=== PATIENT | male | born 1995 | race African-American/Black ===

== ENCOUNTER 2016-12-12 09:34 | Emergency (ER) | payer MEDICAID, OTHER ==
[2016-12-12 10:47] VITALS: BP 138/96
--- NOTE | 2016-12-12 11:14 | UC ---
Complaint Male HPI - HPI Summary HPI Summary: 21 year old patient noticed redness around his urethra opening yesterday. Reports new sexual partner a day and a half ago without condom use. Denies swelling or tenderness in the groin, discharge from the penis, or lesions. - History of Current Complaint Chief Complaint: UCSTDScreening Stated Complaint: STD TESTING Time Seen by Provider: 12/12/16 10:58 Hx Obtained From: Patient Severity Initially: Mild Severity Currently: Mild Location: Penis - Erythema Associated Signs And Symptoms: Negative: Fever, Hematuria, Dysuria, Nausea, Penile Swelling - Denies testicular swelling, Penile Discharge - Risk Factors Testicular Torsion: Negative - Allergies/Home Medications Allergies/Adverse Reactions: Allergies Allergy/AdvReac Type Severity Reaction Status Date / Time No Known Allergies Allergy Verified 02/04/16 15:44 PMH/Surg Hx/FS Hx/Imm Hx Previously Healthy: Yes Endocrine History Of: Denies: Diabetes, Thyroid Disease Cardiovascular History Of: Denies: Cardiac Disorders, Hypertension Respiratory History Of: Denies: COPD, Asthma GI/ History Of: Denies: Ulcer Neurological History Of: Denies: TIA, CVA, Dementia, Seizures, Migraine Psychological History Of: Denies: Anxiety, Depression, Bipolar Disorder, Schizophrenia, Post Traumatic Stress Disorder - Surgical History Surgical History: Yes Surgery Procedure, Year, and Place: TONSILLECTOMY - Family History Known Family History: Positive: None - Social History Lives: With Family Alcohol Use: Weekly Substance Use Type: None Substance Use Comment - Amount & Last Used: cocaine found in pocket by police Smoking Status (MU): Light Every Day Tobacco Smoker Amount Used/How Often: LESS THAN 1/2 PPD Have You Smoked in the Last Year: No - Immunization History Vaccination Up to Date: Yes Review of Systems Constitutional: Negative Skin: Other - Irritation around the urethra Eyes: Negative ENT: Negative Respiratory: Negative Cardiovascular: Negative Gastrointestinal: Negative Genitourinary: Negative Motor: Negative Neurovascular: Negative Musculoskeletal: Negative Neurological: Negative Psychological: Negative All Other Systems Reviewed And Are Negative: Yes Physical Exam Triage Information Reviewed: Yes Appearance: Well-Appearing Vital Signs: Initial Vital Signs Temp 97.3 F 12/12/16 10:43 Pulse 66 12/12/16 10:43 Resp 18 12/12/16 10:43 BP 138/96 12/12/16 10:43 Pulse Ox 100 12/12/16 10:43 Vital Signs Reviewed: Yes Eye Exam: Normal Eyes: Positive: Conjunctiva Clear ENT: Positive: Hearing grossly normal, Pharynx normal, TMs normal Dental Exam: Normal Neck: Positive: Supple, Nontender, No Lymphadenopathy Respiratory: Positive: Chest non-tender, Lungs clear, Normal breath sounds Cardiovascular: Positive: RRR, No Murmur, Pulses Normal Abdomen Description: Positive: Nontender, No Organomegaly, Soft Bowel Sounds: Positive: Present Musculoskeletal Exam: Normal Musculoskeletal: Positive: Strength Intact, ROM Intact Neurological Exam: Normal Neurological: Positive: Alert Psychological Exam: Normal Complaint Male Course/Dx - Differential Dx/Diagnosis Provider Diagnoses: Skin irritation at urethral meatus. STI screenings Discharge - Discharge Plan Condition: Stable Disposition: HOME Patient Education Materials: Safe Sex (ED), Nonspecific Urethritis in Men (ED) Referrals: [facility] [Outside] - If Needed Additional Instructions: Follow up to have repeat GC chlamydia in 14-21 days, today's lab were taken as a baseline. Repeat HIV screening in 3-6months
== END 2016-12-12 11:37 | disposition home or self-care (01) ==
LOC: UCEAST 09:34
DX: N48.89 Other specified disorders of penis (principal); Z11.3 Encounter for screening for infections with a predominantly sexual mode of transmission; F17.210 Nicotine dependence, cigarettes, uncomplicated
CPT/HCPCS: 87491; 87529; 87591; 99201; G0463

== ENCOUNTER 2017-02-08 23:06 | Emergency (ER) | payer MEDICAID ==
[2017-02-08 23:14] VITALS: BP 183/97
--- NOTE | 2017-02-09 00:58 | ED ---
Laceration/Wound HPI - HPI Summary HPI Summary: 21M presents with laceration to left index finger. He cut it on a knife. His last tetanus was 3 years ago. He has full ROM of his fingers. He is right handed. Bleeding is controlled at this time. - History of Current Complaint Stated Complaint: LEFT POINTER LAC Time Seen by Provider: 02/08/17 23:49 Pain Intensity: 2 - Allergy/Home Medications Allergies/Adverse Reactions: Allergies Allergy/AdvReac Type Severity Reaction Status Date / Time No Known Allergies Allergy Verified 02/08/17 23:14 PMH/Surg Hx/FS Hx/Imm Hx Endocrine/Hematology History: Denies: Hx Diabetes, Hx Thyroid Disease Cardiovascular History: Denies: Hx Hypertension Respiratory History: Denies: Hx Asthma, Hx Chronic Obstructive Pulmonary Disease (COPD) GI History: Denies: Hx Ulcer Sensory History: Denies: Hx Contacts or Glasses Opthamlomology History: Denies: Hx Contacts or Glasses Neurological History: Denies: Hx Dementia, Hx Migraine, Hx Seizures, Hx Transient Ischemic Attacks (TIA) Psychiatric History: Denies: Hx Anxiety, Hx Eating Disorder, Hx Depression, Hx Schizophrenia, Hx Bipolar Disorder, Hx of Violent Episodes Against Others - Surgical History Surgery Procedure, Year, and Place: TONSILLECTOMY Infectious Disease History: No Infectious Disease History: Denies: Hx Hepatitis, Hx Human Immunodeficiency Virus (HIV), Traveled Outside the [place] in Last 30 Days - Family History Known Family History: Positive: None Negative: Cardiac Disease - Social History Alcohol Use: Occasionally Substance Use Type: Reports: None Substance Use Comment - Amount & Last Used: cocaine found in pocket by police Smoking Status (MU): Light Every Day Tobacco Smoker Amount Used/How Often: LESS THAN 1/2 PPD Have You Smoked in the Last Year: No Review of Systems Negative: Fever Negative: Chest Pain Negative: Shortness Of Breath Positive: Other - left index finger laceration All Other Systems Reviewed And Are Negative: Yes Physical Exam Triage Information Reviewed: Yes Vital Signs On Initial Exam: Initial Vitals Temp Pulse Resp BP Pulse Ox 98.2 F 87 18 183/97 100 02/08/17 23:10 02/08/17 23:10 02/08/17 23:10 02/08/17 23:10 02/08/17 23:10 Vital Signs Reviewed: Yes Appearance: Positive: Well-Appearing Skin: Positive: Warm, Dry, Other - 4 cm by 1/2 cm laceration near MCP of left index finger Head/Face: Positive: Normal Head/Face Inspection Eyes: Positive: Normal, Conjunctiva Clear Respiratory/Lung Sounds: Positive: Clear to Auscultation, Breath Sounds Present Cardiovascular: Positive: Normal, RRR Procedures - Laceration/Wound Repair 1 Location: Other - left index finger Description: Linear Anesthesia: Digital, 1.0% Length, Depth and Shape: 4 cm by 1/2 cm width Irrigated w/ Saline (ccs): 100 Closure: Single Layer Suture Type: Prolene - 4-0 Number of Sutures: 6 Diagnostics - Vital Signs Vital Signs Temp Pulse Resp BP Pulse Ox 02/08/17 23:10 98.2 F 87 18 183/97 100 - Laboratory Lab Statement: Any lab studies that have been ordered have been reviewed, and results considered in the medical decision making process. Laceration Repair Course/Dx - Course Course Of Treatment: 21M presents with laceration to left index finger. cut it on knife. full ROM of left index finger. placed 6 sutures and kimmie taped. patient understands and agrees with plan - Differential Dx Differental Diagnoses: Abrasion, Avulsion, Laceration - Clinical Impression Provider Diagnoses: Laceration of left index finger Discharge - Discharge Plan Condition: Good Disposition: HOME Patient Education Materials: Care For Your Stitches (ED) Referrals: No Primary Care Phys,NOPCP [Primary Care Provider] - Additional Instructions: Keep area kimmie taped, change dressing once a day Keep area clean and dry for 48 hours Take Tylenol or ibuprofen for pain every 6 hours Return to ED or primary for suture removal in 10-14 days Return to ED if develop signs of infection such as fever, spreading redness, or pus formation Images - Images Hands: 1 - 4cm by 1/2 cm laceration
== END 2017-02-09 01:09 | disposition home or self-care (01) ==
LOC: ED 23:06
DX: S61.211A Laceration without foreign body of left index finger without damage to nail, initial encounter (principal); W26.0XXA Contact with knife, initial encounter; Y93.9 Activity, unspecified; Y92.9 Unspecified place or not applicable; F17.210 Nicotine dependence, cigarettes, uncomplicated
CPT/HCPCS: 12002; 99281

== ENCOUNTER 2017-02-20 11:23 | Emergency (ER) | payer MEDICAID ==
--- NOTE | 2017-02-20 12:34 | UC ---
HPI Wound/Suture Re-check - HPI Summary HPI Summary: Seen in ED 02/08/17 for cut at base of L 2nd finger. Had 6 sutures placed, here for removal. Finger still swollen, no redness or pain. Has numbness on the dorsal aspect of finger distal to wound. - History Of Current Complaint Chief Complaint: UCWounds Stated Complaint: WOUND RECHECK Time Seen by Provider: 02/20/17 12:19 Hx Obtained From: Patient Onset/Duration: Sudden Onset Severity: Mild - Allergies/Home Medications Allergies/Adverse Reactions: Allergies Allergy/AdvReac Type Severity Reaction Status Date / Time No Known Allergies Allergy Verified 02/08/17 23:14 PMH/Surg Hx/FS Hx/Imm Hx Endocrine History Of: Denies: Diabetes, Thyroid Disease Cardiovascular History Of: Denies: Cardiac Disorders, Hypertension Respiratory History Of: Denies: COPD, Asthma GI/ History Of: Denies: Ulcer Neurological History Of: Denies: TIA, CVA, Dementia, Seizures, Migraine Psychological History Of: Denies: Anxiety, Depression, Bipolar Disorder, Schizophrenia, Post Traumatic Stress Disorder - Surgical History Surgical History: Yes Surgery Procedure, Year, and Place: TONSILLECTOMY - Family History Known Family History: Positive: None Negative: Cardiac Disease - Social History Occupation: Employed Full-time - in kitchen Alcohol Use: Occasionally Alcohol Amount: states no Substance Use Type: None Substance Use Comment - Amount & Last Used: cocaine found in pocket by police Smoking Status (MU): Former Smoker Amount Used/How Often: LESS THAN 1/2 PPD Have You Smoked in the Last Year: No - Immunization History Vaccination Up to Date: Yes Review of Systems Constitutional: Negative Skin: Other - sutures L 2nd finger Eyes: Negative ENT: Negative Respiratory: Negative Cardiovascular: Negative Gastrointestinal: Negative Genitourinary: Negative Motor: Negative Neurovascular: Negative Musculoskeletal: Negative Neurological: Negative Psychological: Negative All Other Systems Reviewed And Are Negative: Yes Physical Exam Triage Information Reviewed: Yes Appearance: Well-Appearing, No Pain Distress, Well-Nourished Vital Signs: Initial Vital Signs Temp 98.3 F 02/20/17 12:13 Pulse 70 02/20/17 12:13 Resp 18 02/20/17 12:13 Pulse Ox 99 02/20/17 12:13 Vital Signs Reviewed: Yes Eye Exam: Normal Eyes: Positive: Conjunctiva Clear ENT Exam: Normal ENT: Positive: Normal ENT inspection, Hearing grossly normal, Pharynx normal, TMs normal Dental Exam: Normal Neck exam: Normal Neck: Positive: Supple, Nontender, No Lymphadenopathy Respiratory Exam: Normal Respiratory: Positive: Chest non-tender, Lungs clear, Normal breath sounds, No respiratory distress, No accessory muscle use Cardiovascular Exam: Normal Cardiovascular: Positive: RRR, No Murmur Musculoskeletal Exam: Normal Neurological Exam: Other - L 2nd finger numbness Neurological: Positive: Alert Psychological Exam: Normal Skin Exam: Other - 6 sutures removed from laceration L 2nd finger. Surface of wound slightly dehisced, but deeper healing is apparent. No erythema or streaking. Course/Dx - Differential Dx - Laceration/Wound Provider Diagnoses: Suture removal L index finger. healing wound Discharge - Discharge Plan Condition: Stable Disposition: HOME Patient Education Materials: Stitches Removal (ED) Referrals: No Primary Care Phys,NOPCP [Primary Care Provider] - Additional Instructions: Call or return if you develop redness, streaking, or significant pain in your finger.
== END 2017-02-20 12:35 | disposition home or self-care (01) ==
LOC: UCEAST 11:23
DX: Z48.02 Encounter for removal of sutures (principal)

== ENCOUNTER 2017-07-16 15:26 | Emergency (ER) | payer MEDICAID ==
[2017-07-16 15:35] VITALS: BP 149/85
--- NOTE | 2017-07-16 16:12 | UC ---
Delores Ruiz Thomas, scribed for Bethanie Mendoza MD on 07/16/17 at 1606 . Throat Pain/Nasal Diogo HPI - HPI Summary HPI Summary: The pt is a 21 y/o M presenting to [facility] c/o sore throat, a cough, and nasal congestion that began three days ago. He notes that he has had a bad mold problem in his home for the last 6 months. The patient has treated the pain with DayQuil and NyQuil [employer]OR OF [employer]. He did not take DayQuil today. Pt additionally c/o postnasal drip and insomnia secondary to the pain. Pt denies sinus congestion and ear pain. He is not on daily medication. PMHx: previously healthy. PSHx: tonsillectomy. SHx: smoking, occasional alcohol use, no illicit drug use. He works in a kitchen at the [employer]. He denies recent sick contacts. Patient s medication reviewed this visit. - History of Current Complaint Chief Complaint: UCRespiratory Stated Complaint: URI Time Seen by Provider: 07/16/17 15:58 Hx Obtained From: Patient Onset/Duration: Lasting Days - 3, Still Present Cough: Nonproductive Associated Signs & Symptoms: Positive: Nasal Discharge, Other - POS: sore throat , nasal congestion, postnasal drip, insomnia secondary to the pain. Negative: Sinus Discomfort, Fever Related History: Smoking, Other (Noted In Comments) - He reports a mold problem in his house. - Allergies/Home Medications Allergies/Adverse Reactions: Allergies Allergy/AdvReac Type Severity Reaction Status Date / Time No Known Allergies Allergy Verified 07/16/17 15:34 PMH/Surg Hx/FS Hx/Imm Hx Previously Healthy: Yes Cardiovascular History: Other Other Cardiovascular History: NEG: CHF Respiratory History: Other Other Respiratory History: NEG: asthma - Surgical History Surgical History: Yes Surgery Procedure, Year, and Place: TONSILLECTOMY - Family History Known Family History: Negative: Cardiac Disease, Diabetes - Social History Occupation: Employed Full-time Lives: Alone Alcohol Use: Occasionally Alcohol Amount: states no Substance Use Type: None Smoking Status (MU): Current Every Day Smoker Amount Used/How Often: LESS THAN 1/2 PPD Have You Smoked in the Last Year: No - Immunization History Vaccination Up to Date: Yes Review of Systems Constitutional: Negative Skin: Negative Eyes: Negative ENT: Sore Throat, Nasal Discharge, Sinus Congestion, Sinus Pain/Tenderness, Other - POS: nasal congestion, postnasal drip; Respiratory: Cough Cardiovascular: Negative Gastrointestinal: Negative Genitourinary: Negative Motor: Negative Neurovascular: Negative Musculoskeletal: Negative Neurological: Other - POS: insomnia secondary to the pain Psychological: Negative All Other Systems Reviewed And Are Negative: Yes Physical Exam Triage Information Reviewed: Yes Appearance: Well-Appearing, No Pain Distress, Well-Nourished Vital Signs: Initial Vital Signs Temp 98.1 F 07/16/17 15:30 Pulse 68 07/16/17 15:30 Resp 12 07/16/17 15:30 BP 149/85 07/16/17 15:30 Pulse Ox 99 07/16/17 15:30 Eye Exam: Normal Eyes: Positive: Conjunctiva Clear ENT Exam: Normal ENT: Positive: Hearing grossly normal, TM dull - left TM with fluid no erythema turbinates inflammed, boggy + max sinus pain + PND mmoist no exudate, no erythema uvula midline Dental Exam: Normal Neck exam: Normal Neck: Positive: 1 Respiratory Exam: Normal Cardiovascular Exam: Normal Abdominal Exam: Normal Musculoskeletal Exam: Normal Neurological Exam: Normal Psychological Exam: Normal Skin Exam: Normal Throat Pain/Nasal Course/Dx - Course Assessment/Plan: The patient is a 21 y/o M who presents with a sore throat, cough, nasal congestion, and postnasal drip. Pt with fluid at TM and congestion. Tovar tart abx. flonase. secretion hygeine. pt in agreement with plan. Blood pressure noted and patient informed of follow up with PCP. - Differential Dx/Diagnosis Provider Diagnoses: sinusitis Discharge - Discharge Plan Condition: Stable Disposition: HOME Prescriptions: Azithromyxin JB (NF) [Z-Jb (Zithromax) 250 mg tabs #6] 2 tab PO .TODAY, THEN 1 DAILY #6 tab Fluticasone NASAL SPRAY 50MCG* [Flonase NASAL SPRAY 50MCG*] 1 spray BOTH NARES DAILY #1 btl Patient Education Materials: Rhinosinusitis (ED) Referrals: No Primary Care Phys,NOPCP [Primary Care Provider] - Additional Instructions: - Take anitbiotics as prescribed until gone - use nasal sprays as prescribed - okay to take dayquil and nyquil for your symptoms - These infections are spread by oral secretions - do not share eating or drinking utensils until you symptoms are resolved. Clean items that may get your secretions such as cell phones, ipads, computer mouse, television remote. Once you have been on antbiotics for 2 days, change your pillowcase and your toothbrush - Contact your doctor or return with questions or concerns The documentation as recorded by the Delores guerra Thomas accurately reflects the service I personally performed and the decisions made by me, Bethanie Mendoza MD.
== END 2017-07-16 16:15 | disposition home or self-care (01) ==
LOC: UCEAST 15:26
DX: J32.9 Chronic sinusitis, unspecified (principal); F17.210 Nicotine dependence, cigarettes, uncomplicated
CPT/HCPCS: 99212; G0463

== ENCOUNTER 2019-08-30 20:34 | Emergency (ER) | payer OTHER ==
--- NOTE | 2019-08-30 20:37 | UC ---
Back Pain HPI - HPI Summary HPI Summary: 23 yo male presents with low back pain. He tells me that around 1600 this evening he was lifting a heavy box at work and felt a pop in his lower back. Lower back has been stiff since that time. He has not taken anything OTC for his discomfort. He denies hx of back pain. Denies radiation of pain, numbness, tingling. No saddle anesthesia or loss of bowel/bladder control. - History of Current Complaint Stated Complaint: BACK PAIN Time Seen by Provider: 08/30/19 20:36 Hx Obtained From: Patient Onset/Duration: Sudden Onset Severity Initially: Moderate Severity Currently: Moderate Pain Intensity: 5 Pain Scale Used: 0-10 Numeric - Allergies/Home Medications Allergies/Adverse Reactions: Allergies Allergy/AdvReac Type Severity Reaction Status Date / Time No Known Allergies Allergy Verified 08/30/19 20:49 Home Medications: Home Medications NK [No Home Medications Reported] 08/30/19 [History Confirmed 08/30/19] PMH/Surg Hx/FS Hx/Imm Hx - Additional Past Medical History Additional PMH: None - Surgical History Surgical History: Yes Surgery Procedure, Year, and Place: TONSILLECTOMY - Family History Known Family History: Positive: None Negative: Cardiac Disease, Diabetes - Social History Occupation: Student Alcohol Use: Occasionally Alcohol Amount: states no Substance Use Type: None Smoking Status (MU): Current Every Day Smoker Amount Used/How Often: LESS THAN 1/2 PPD Have You Smoked in the Last Year: No - Immunization History Vaccination Up to Date: Yes Review of Systems All Other Systems Reviewed And Are Negative: No Constitutional: Positive: Negative Skin: Positive: Negative Respiratory: Positive: Negative Cardiovascular: Positive: Negative Neurovascular: Positive: Negative Musculoskeletal: Positive: Other: - Back pain Neurological: Positive: Negative Psychological: Positive: Negative Physical Exam - Summary Physical Exam Summary: GENERAL: NAD. WDWN. No pain distress. SKIN: No rashes, sores, lesions, or open wounds. NECK: Supple. FROM. Nontender. No lymphadenopathy. CHEST: CTAB. No r/r/w. No accessory muscle use. Breathing comfortably and in no distress. CV: RRR. Pulses intact. Cap refill <2seconds MSK: TTP over lumbar paraspinal muscles. Pain with flexion and extension of spine. Positive SLR b/l for low back pain without radiation. Strength 5/5 B/L LEs including dorsiflexion and plantar flexion. FROM B/L LEs. No edema. NEURO: Alert. Sensations intact B/L LEs L3-S1. Reflexes intact PSYCH: Age appropriate behavior. Triage Information Reviewed: Yes Vital Signs: Vital Signs: Temp Pulse Resp BP Pulse Ox 99 F 73 18 145/85 96 08/30/19 20:45 08/30/19 20:45 08/30/19 20:45 08/30/19 20:45 08/30/19 20:45 Vital Signs Reviewed: Yes Diagnostics - Radiology Lumbar XR Radiology Interpretation Completed By: ED Physician Summary of Radiographic Findings: No acute process Back Pain Course/Dx - Course Course Of Treatment: XR wet read negative for acute process. Suspect strain of lower back. In the clinic he was given toradol IM for his discomfort. Advised to rest and apply ice/heat to the area to decrease discomfort. Advised to take tylenol/ibuprofen as directed for discomfort. If pain does not improve within 5-7 days, to call [facility] (Dr. Covington) at number below to schedule a recheck - Differential Dx/Diagnosis Provider Diagnosis: Low back pain Discharge ED - Sign-Out/Discharge Documenting (check all that apply): Patient Departure All imaging exams completed and their final reports reviewed: No - Discharge Plan Condition: Stable Disposition: HOME Patient Education Materials: Low Back Strain (ED), Lower Back Exercises (ED) Forms: *Work Release Referrals: No Primary Care Phys,NOPCP [Primary Care Provider] - Mgadaleno Covington MD [Medical Doctor] - If Needed Additional Instructions: If you develop a fever, shortness of breath, chest pain, new or worsening symptoms - please call your PCP or go to the ED immediately. Your blood pressure was high at todays visit. Please see your primary provider within 4 weeks for recheck and re-evaluation. 1) Rest and apply ice/heat to your back to decrease discomfort 2) May take tylenol/ibuprofen as directed for discomfort 3) If your symptoms do not improve within 5-7 days, please call Dr. Covington at the number below to schedule an appointment for a recheck of your work related injury - Billing Disposition and Condition Condition: STABLE Disposition: Home - Attestation Statements Provider Attestation: Per institutional requirements, I have reviewed the chart, however, I was not consulted specifically or made aware of this patient by the midlevel provider. I did not personally evaluate, interact with , or disposition this patient.
[2019-08-30 20:51] VITALS: BP 145/85
[2019-08-30] MEDS ORDERED: Ketorolac *IM* INJ* 60 MG/2 ML VIAL IM ONE (20:53)
--- NOTE | 2019-08-31 10:43 | UC ---
- Progress Note Progress Note: Reviewed xray report from 08/30/19. Reviewed UC notes. No change in management based on xray report. Course/Dx - Diagnoses Provider Diagnoses: Low back pain Discharge ED - Sign-Out/Discharge Documenting (check all that apply): Post-Discharge Follow Up All imaging exams completed and their final reports reviewed: Yes - Discharge Plan Condition: Stable Disposition: HOME Patient Education Materials: Low Back Strain (ED), Lower Back Exercises (ED) Forms: *Work Release Referrals: Magdaleno Covington MD [Medical Doctor] - If Needed No Primary Care Phys,NOPCP [Primary Care Provider] - Additional Instructions: If you develop a fever, shortness of breath, chest pain, new or worsening symptoms - please call your PCP or go to the ED immediately. Your blood pressure was high at todays visit. Please see your primary provider within 4 weeks for recheck and re-evaluation. 1) Rest and apply ice/heat to your back to decrease discomfort 2) May take tylenol/ibuprofen as directed for discomfort 3) If your symptoms do not improve within 5-7 days, please call Dr. Covington at the number below to schedule an appointment for a recheck of your work related injury - Billing Disposition and Condition Condition: STABLE Disposition: Home
== END 2019-08-30 21:40 | disposition home or self-care (01) ==
LOC: UCEAST 20:34
DX: M54.5 Low back pain (principal); F17.210 Nicotine dependence, cigarettes, uncomplicated
CPT/HCPCS: 72110; 99211; G0463; J1885

== ENCOUNTER 2020-05-16 02:48 | Inpatient (IN) ==
[2020-05-16 03:39] LABS: Urine Appearance Clear; Urine Bilirubin Negative (Negative); Urine Blood 1+ (Negative); Urine Color Straw; Urine Glucose Negative (Negative); Urine Ketones Negative (Negative); Urine Nitrite Negative (Negative); Urine Protein Negative (Negative); Urine Specific Gravity 1.003 (1.010-1.030); Urine Urobilinogen Negative (Negative)
[2020-05-16 03:58] LABS: Urine Benzodiazepine Screen None Detected (None Detect); Urine Opiates Screen None Detected (None Detect)
[2020-05-16] MEDS ORDERED: Nicotine PATCH 14 MG/24 HR PATCH TRANSDERM ONE (04:09)
[2020-05-16 04:18] LABS: ALT 56 U/L (7-52); AST 38 U/L (13-39); Albumin 4.7 g/dL (3.2-5.2); Albumin/Globulin Ratio 1.7 (1-3); Alkaline Phosphatase 97 U/L (34-104); Anion Gap 8 mmol/L (2-11); BUN/Creatinine Ratio 9.5 (8-20); Blood Urea Nitrogen 7 mg/dL (6-24); CO2 Carbon Dioxide 25 mmol/L (22-32); Calcium 8.8 mg/dL (8.6-10.3); Chloride 110 mmol/L (101-111); EGFR African American 157.2 (>60); EGFR Non-African American 129.9 (>60); Globulin 2.7 g/dL (2-4); Glucose 102 mg/dL (70-100); Potassium 3.6 mmol/L (3.5-5.0); Sodium 143 mmol/L (135-145); Total Protein 7.4 g/dL (6.4-8.9)
[2020-05-16 04:32] LABS: Urine Bacteria Absent (Absent); Urine Red Blood Cell Trace(0-2/hpf) (Absent); Urine White Blood Cell Trace(0-5/hpf) (Absent)
[2020-05-16 04:33] LABS: ABS Basophils 0.1 10^3/ul (0-0.2); ABS Eosinophils 0.1 10^3/ul (0-0.6); ABS Lymphocytes 2.7 10^3/ul (1.0-4.8); ABS Monocytes 0.4 10^3/ul (0-0.8); Hematocrit 42 % (42-52); Lymphocyte % 39.9 %; Mean Corpuscular HGB Conc 36 g/dL (31-36); Mean Corpuscular Hemoglobin 30 pg (27-31); Mean Corpuscular Volume 84 fL (80-94); Mean Platelet Volume 7.1 fL (7.4-10.4); Nucleated Red Blood Cells % 0.1; Platelet Count 304 10^3/uL (150-450); Red Cell Distribution Width 14 % (10-15); White Blood Count 6.8 10^3/uL (3.5-10.8)
[2020-05-16 04:39] LABS: Acetaminophen < 15 mcg/mL; Alcohol, S 263 mg/dL (<10); Salicylate < 2.50 mg/dL (<30)
[2020-05-16 04:52] LABS: TSH (Thyroid Stimulating Horm) 1.21 mcIU/mL (0.34-5.60)
[2020-05-16] MEDS ORDERED: diPHENhydraMINE IV 50 MG/ML 1 ml VIAL (BENADRYL) IM ONE (04:52)
[2020-05-16] MEDS ORDERED: Haloperidol 5 mg/ml SDV IV/IM 5 MG/ML AMP IM ONE (04:52)
[2020-05-16] MEDS ORDERED: LORazepam 2 mg VIAL 1 ml IM ONE (04:52)
[2020-05-16] MEDS ORDERED: Lorazepam PYXIS KEY ONE (04:58)
[2020-05-16] MEDS ORDERED: Al Hydrox/Mg Hydrox/Simet LIQ 30 ML UDC PO PRN (14:02)
[2020-05-16] MEDS ORDERED: LORazepam 1 mg TAB (*) PO ONE (14:06)
[2020-05-17] MEDS: Vitamin THERAPEUTIC TAB PO SCH (08:36)
[2020-05-17] MEDS ORDERED: Nicotine GUM 4MG FRUIT FLAVOR PO PRN (10:29)
[2020-05-17] MEDS: Nicotine PATCH 21 MG/24 HR PATCH TRANSDERM SCH (10:58)
[2020-05-17] MEDS ORDERED: diPHENhydraMINE IV 50 MG/ML 1 ml VIAL (BENADRYL) IM ONE (11:20)
[2020-05-17] MEDS ORDERED: LORazepam 2 mg VIAL 1 ml IM ONE (11:20)
[2020-05-17] MEDS: LORazepam 1 mg TAB (*) PO SCH ×3 (15:46→19:50)
[2020-05-18] MEDS: LORazepam 1 mg TAB (*) PO SCH ×6 (00:22→23:31)
[2020-05-18] MEDS: Vitamin THERAPEUTIC TAB PO SCH (08:24)
[2020-05-18] MEDS: Nicotine PATCH 21 MG/24 HR PATCH TRANSDERM SCH (08:24)
[2020-05-18 18:33] LABS: Variant Hemoglobin 39.6 = Hb S %
[2020-05-19] MEDS: Nicotine PATCH 21 MG/24 HR PATCH TRANSDERM SCH (08:19)
[2020-05-19] MEDS: Vitamin THERAPEUTIC TAB PO SCH (08:19)
[2020-05-19 11:02] VITALS: BP 161/95
== END 2020-05-19 11:45 | disposition home or self-care (01) | DRG 756 ==
LOC: ED 02:48 → BSU 16:32
PROVIDERS: ADMIT Psychiatry & Neurology Psychiatry; ATTEND Psychiatry & Neurology Psychiatry

== ENCOUNTER 2021-04-06 21:27 | Observation (INO) ==
[2021-04-06 23:23] LABS: Urine Benzodiazepine Screen None Detected (None Detect); Urine Cannabinoids Screen Presumptive Positive (None Detect); Urine Opiates Screen None Detected (None Detect)
[2021-04-06] MEDS ORDERED: NS 0.9% 1000 ml BAG 1,000 ML IV ONE (23:36)
[2021-04-07] MEDS ORDERED: levETIRAcetam 1000MG IVPREMIX 1,000 MG/100 ML BAG IVPB ONE (00:38)
[2021-04-07] MEDS ORDERED: levETIRAcetam 500 MG IVPREMIX 500 MG/100 ML BAG IV SCH (01:00)
[2021-04-07] MEDS ORDERED: cloNIDine 0.1 MG PATCH 0.1 MG/24 HR 7 DAY PATCH TRANSDERM SCH (09:00)
[2021-04-07] MEDS ORDERED: Lorazepam PYXIS KEY PRN (14:38)
[2021-04-07] MEDS ORDERED: LORazepam 2 mg VIAL 1 ml IV PUSH ONE (14:38)
[2021-04-07] MEDS ORDERED: LORazepam 2 mg VIAL 1 ml IM ONE (14:40)
[2021-04-07] MEDS ORDERED: LORazepam 2 mg VIAL 1 ml ONE (14:40)
[2021-04-07] MEDS ORDERED: levETIRAcetam IV 750 MG in NS 0.9% 100 ml BAG 100 ML IVPB SCH (18:00)
[2021-04-07] MEDS: levETIRAcetam IV 750 MG in NS 0.9% 100 ml BAG 100 ML IVPB SCH (20:04)
[2021-04-08 04:56] LABS: ABS Basophils 0.1 10^3/ul (0-0.2); ABS Eosinophils 0.1 10^3/ul (0-0.6); ABS Lymphocytes 3.2 10^3/ul (1.0-4.8); ABS Monocytes 0.8 10^3/ul (0-0.8); ABS Neutrophils 4.3 10^3/ul (1.5-7.7); Eosinophil % 1.3 %; Hematocrit 42 % (42-52); Hemoglobin 14.3 g/dL (14.0-18.0); Lymphocyte % 38.2 %; Mean Corpuscular HGB Conc 35 g/dL (31-36); Mean Corpuscular Hemoglobin 28 pg (27-31); Mean Corpuscular Volume 80 fL (80-94); Mean Platelet Volume 7.9 fL (7.4-10.4); Nucleated Red Blood Cells % 0.1; Platelet Count 298 10^3/uL (150-450); Red Blood Count 5.17 10^6 /uL (4.18-5.48); Red Cell Distribution Width 16 % (10-15); White Blood Count 8.5 10^3/uL (3.5-10.8)
[2021-04-08 05:18] LABS: Calcium 9.1 mg/dL (8.6-10.3); EGFR African American 158.4 (>60); EGFR Non-African American 130.9 (>60); Potassium 3.5 mmol/L (3.5-5.0)
[2021-04-08] MEDS: levETIRAcetam IV 750 MG in NS 0.9% 100 ml BAG 100 ML IVPB SCH (07:34)
[2021-04-08] MEDS ORDERED: levETIRAcetam 500 MG IVPREMIX 500 MG/100 ML BAG IV SCH (10:00)
[2021-04-08] MEDS ORDERED: Enoxaparin 40 MG/0.4 ML SYR SUBCUT SCH (10:00)
[2021-04-08 15:34] VITALS: BP 159/96
== END 2021-04-08 18:46 | disposition home or self-care (01) ==
LOC: ED 21:27 → EDHOLD 21:27 → SSU 04-07 03:26
PROVIDERS: ADMIT Student in an Organized Health Care Education/Training Program; ATTEND Hospitalist

== ENCOUNTER 2024-10-13 20:18 | Observation (INO) ==
[2024-10-13 21:31] LABS: ABS Basophils 0.1 10^3/uL (0.0-0.1); ABS Eosinophils 0.2 10^3/uL (0.0-0.5); ABS Lymphocytes 1.9 10^3/uL (1.0-4.8); ABS Monocytes 0.7 10^3/uL (0.0-1.1); ABS Neutrophils 5.3 10^3/uL (1.5-7.6); ABS Nucleated RBC 0.01 10^3/ul; Eosinophil % 2.9 %; Hematocrit 46.2 % (38-53); Lymphocyte % 23.2 %; Mean Corpuscular Hemoglobin 29.9 pg (27-33); Mean Corpuscular Hgb Conc 34.7 g/dL (31-36); Mean Corpuscular Volume 86.2 fL (80-97); Nucleated Red Blood Cells % 0.1 %/100WBC (0.0-0.8); Platelet Count 378 10^3/uL (150-450); Red Blood Count 5.35 10^6/uL (4.06-5.63); Red Cell Distribution Width 13.2 % (12-17); White Blood Count 8.3 10^3/uL (3.6-10.2)
[2024-10-13 22:16] LABS: Albumin 5.1 g/dL (3.2-5.2); Albumin/Globulin Ratio 2.1 (1-3); C Reactive Protein 1.36 mg/L (<8.01); Calcium 10.3 mg/dL (8.6-10.3); Creatinine, Serum 0.78 mg/dL (0.67-1.17); Globulin 2.4 g/dL (2-4); Potassium 4.4 mmol/L (3.5-5.0); Total Bilirubin 1.2 mg/dL (0.2-1.0); Total Protein 7.5 g/dL (6.4-8.9); eGFR CKD-EPI 124.6 (>60)
[2024-10-13] MEDS: Morphine 4 MG/ML VIAL (1 ml) IV ONE (22:18)
[2024-10-13] MEDS: Lactated Ringers 1000 ml BAG 1,000 ML IV ONE (22:22)
[2024-10-13] MEDS ORDERED: Acetaminophen IV 1 GM/100ML 1,000 MG/100 ML BAG IV PRN (23:50)
[2024-10-14 06:10] LABS: ABS Basophils 0.1 10^3/uL (0.0-0.1); ABS Eosinophils 0.3 10^3/uL (0.0-0.5); ABS Lymphocytes 2.4 10^3/uL (1.0-4.8); ABS Monocytes 0.7 10^3/uL (0.0-1.1); ABS Neutrophils 3.1 10^3/uL (1.5-7.6); ABS Nucleated RBC 0.02 10^3/ul; Eosinophil % 4.5 %; Hematocrit 43.5 % (38-53); Hemoglobin 15.1 g/dL (13.2-16.3); Lymphocyte % 36.7 %; Mean Corpuscular Hemoglobin 30.1 pg (27-33); Mean Corpuscular Hgb Conc 34.7 g/dL (31-36); Mean Corpuscular Volume 86.6 fL (80-97); Mean Platelet Volume 7.3 fL (7.5-11.2); Nucleated Red Blood Cells % 0.3 %/100WBC (0.0-0.8); Platelet Count 319 10^3/uL (150-450); Red Blood Count 5.03 10^6/uL (4.06-5.63); Red Cell Distribution Width 13.3 % (12-17); White Blood Count 6.5 10^3/uL (3.6-10.2)
[2024-10-14 07:09] LABS: Albumin 4.7 g/dL (3.2-5.2); Albumin/Globulin Ratio 2.2 (1-3); Creatinine, Serum 0.76 mg/dL (0.67-1.17); Globulin 2.1 g/dL (2-4); Potassium 4.1 mmol/L (3.5-5.0); Total Bilirubin 1.6 mg/dL (0.2-1.0); Total Protein 6.8 g/dL (6.4-8.9); eGFR CKD-EPI 125.6 (>60)
[2024-10-14] MEDS: Iohexol 300 (CONTRAST) 10 ML SDV IV ONE (14:19)
[2024-10-14] MEDS ORDERED: Lidocaine 4% CREAM (LMX) 5 GM TUBE TOPICAL PRN (18:04)
[2024-10-15 07:32] LABS: Hematocrit 39.3 % (38-53); Mean Corpuscular Hemoglobin 30.5 pg (27-33); Mean Corpuscular Hgb Conc 35.5 g/dL (31-36); Mean Corpuscular Volume 85.7 fL (80-97); Mean Platelet Volume 7.2 fL (7.5-11.2); Platelet Count 292 10^3/uL (150-450); Red Blood Count 4.59 10^6/uL (4.06-5.63); Red Cell Distribution Width 12.9 % (12-17); White Blood Count 5.1 10^3/uL (3.6-10.2)
[2024-10-15 07:58] LABS: Calcium 9.4 mg/dL (8.6-10.3); Creatinine, Serum 0.69 mg/dL (0.67-1.17); Magnesium 2.2 mg/dL (1.9-2.7); eGFR CKD-EPI 129.3 (>60)
[2024-10-15 13:39] VITALS: BP 137/78
== END 2024-10-15 15:00 | disposition home or self-care (01) ==
LOC: EDHOLD 20:18 → ED 20:18 → SUATTDRO 23:48 → MED 10-14 02:25
PROVIDERS: ADMIT Internal Medicine; ATTEND Student in an Organized Health Care Education/Training Program